=== PATIENT | male | born 1995 | race Caucasian/White ===

== ENCOUNTER 2016-03-19 21:10 | Emergency (ER) | payer BC ==
[~2016-03-19] VITALS: Ht 190.5 cm; Wt 63.9 kg
[2016-03-19 21:16] VITALS: TEMP 37; Ht 190.5 cm; Wt 63.9 kg
[2016-03-19] MEDS ORDERED: AMPH12.5 PO (21:38)
[2016-03-19] MEDS ORDERED: ALPR1TAB3 PO (21:38)
[2016-03-19] MEDS ORDERED: AZITHROMYCIN 250 MG TAB PO STA (22:11)
[2016-03-19] MEDS ORDERED: CEFTRIAXONE SOD 350MG/ML 1 GM VIAL IM STA (22:11)
[2016-03-19 22:48] LABS: URINE APPEARANCE CLEAR (CLEAR); URINE BILIRUBIN NEG (NEG); URINE COLOR YELLOW; URINE EPITHELIAL CELL AUTO >30 /lpf (0-5); URINE NITRITE NEG (NEG); URINE PH 7.5 (4.5-7.5); UROBILINOGEN NEG (NEG); ZZUR CULT IF INDIC CLEAN CATCH YES
[2016-03-19 22:59] LABS: MANUAL MICROSCOPIC REQUIRED? NO; REVIEW REQ? YES
--- NOTE | 2016-03-19 23:01 | EMERGENCY ROOM VISIT NOTE ---
History First contact with patient: 21:48 Chief Complaint: OTHER COMPLAINT Stated Complaint: SPITTING UP BLOOD,WANTS AN STD TEST History of Present Illness The patient is a 20 year old male who presents to the Emergency Department by private vehicle for evaluation of spitting up blood. The patient reports that he took Adderall today as he wished to "accomplish a lot". Earlier this evening at approximately 6 PM he reports smoking "tobacco" from a glass bong. He developed a coughing fit which resulted in vomiting. After vomiting, he blew his nose and noticed blood from the RIGHT naris. He noticed persistent blood that he was pain from his throat. He feels as though it is coming from the nose. He's had no persistent cough. He's had no dizziness or lightheadedness. He's had no recent illnesses. He rates his current discomfort as a 0/10. He reports no history of bleeding dyscrasias. He denies any headaches, neck pain, chest pain, or abdominal pain. There is been no black or tarry stools. In addition, the patient complains of a "tingling sensation" under the head of his penis. In addition, he reports urinary frequency and decreased urinary output. He has had protected sex recently. He denies any anal sex. Review of Systems A complete 10-point Review of Systems was discussed with the patient, with pertinent positives and negatives listed in the History of Present Illness. All remaining Review of Systems questions can be considered negative unless otherwise specified. Social History Smoking Status: Current Every Day Smoker Smokeless Tobacco Use: No Alcohol Use: occasionally Drug Use: none Marital Status: single Housing Status: lives with roommate Occupation Status: [employer] student Current/Historical Medications Scheduled Alprazolam (Xanax), 1 MG PO DIRECTED Amphetamine-Dextroamphetamine (Adderall), 22.5 MG PO BID Allergies Coded Allergies: No Known Allergies (Unverified , 03/19/16) Physical Exam Vital Signs Date Time Temp Pulse Resp B/P Pulse Ox O2 Delivery O2 Flow Rate FiO2 03/19/16 23:10 92 18 130/82 99 03/19/16 22:43 115 20 149/103 98 Room Air 03/19/16 21:16 37.0 109 18 142/93 97 Room Air Pain Rating (0-10): 0 Physical Exam VITAL SIGNS - Vital signs and nursing notes were reviewed. GENERAL - Well nourished, well developed 20-year-old male in no acute distress. Pt communicates well with provider and answers questions appropriately. HEAD - NC/AT with no obvious deformities. EYES - PERRL with EOMI bilaterally. Sclera without injection. Palpebral conjunctiva pink and moist. EARS - No deformities of external structures noted on gross examination bilaterally. No pain elicited with palpation of the tragus bilaterally. External auditory canals without discharge or otorrhea. Tympanic membranes pearly tovar without retraction or bulging. No fluid or purulent material visualized behind the TM. Handle of malleus, umbo, cone of light, pars tensa/ flaccid all easily visualized. NOSE - Midline and without cyanosis. No purulent drainage noted. Dried blood noted in the RIGHT naris. No active bleeding noted. MOUTH/OROPHARYNX - Without perioral cyanosis. Buccal mucosa pink and moist and without leukoplakia. Tongue midline with equal elevation of palate bilaterally. What appears to be a small clot in the RIGHT sided posterior oropharynx. No active bleeding noted. No tonsillar hypertrophy, erythema, or exudates noted. Good dentition noted. NECK - Neck with FROM. Supple to palpation. No lymphadenopathy noted. No nuchal rigidity. LUNGS - Chest wall symmetric without accessory muscle use, intercostals retractions, or central cyanosis. Normal vesicular breath sounds CTA B/L. No wheezes, rales, or rhonchi appreciated. CARDIAC - RRR with S1/S2. No murmur, rubs, or gallops appreciated. ABDOMEN - Abdominal contour flat without pulsations or visible masses. BS normoactive all four quadrants. No tenderness, palpable masses, hepatosplenomegaly, or ascites noted. GENITOURINARY -circumcised male without penile lesions or adhesions. No urethral discharge. No testicular tenderness to palpation appreciated. No palpable masses. Urethral swab was obtained. PSYCH - A&Ox3 and cooperates fully with examiner. Pt is very pleasant and interacts well with examiner. Medical Decision & Procedures Laboratory Results Test 03/19/16 22:05 03/19/16 22:16 Urine Color YELLOW Urine Appearance CLEAR (CLEAR) Urine pH 7.5 (4.5-7.5) Urine Specific [place] 1.000 (1.000-1.030) Urine Protein NEG (NEG) Urine Glucose (UA) NEG (NEG) Urine Ketones TRACE (NEG) Urine Occult Blood TRACE (NEG) Urine Nitrite NEG (NEG) Urine Bilirubin NEG (NEG) Urine Urobilinogen NEG (NEG) Urine Leukocyte Esterase MODERATE (NEG) Urine WBC (Auto) 10-30 /hpf (0-5) Urine RBC (Auto) 0-4 /hpf (0-4) Urine Hyaline Casts (Auto) 1-5 /lpf (0-5) Urine Epithelial Cells (Auto) >30 /lpf (0-5) Urine Bacteria (Auto) NEG (NEG) Urine Renal Epithelial Cells /lpf (0-5) Urine Opiates Screen NEG (NEG) Urine Methadone, Qualitative NEG (NEG) Urine Barbiturates NEG (NEG) Urine Phencyclidine (PCP) Level NEG (NEG) Ur Amphetamine/Methamphetamine POS (NEG) MDMA (Ecstasy) Screen NEG (NEG) Urine Benzodiazepines Screen NEG (NEG) Urine Cocaine Metabolite NEG (NEG) Urine Marijuana (THC) POS (NEG) Medications Administered Medications (Trade) Dose Ordered Sig/Allison Route Start Time Stop Time Status Last Admin Dose Admin Ceftriaxone Sodium (Rocephin Im) 250 mg NOW STAT IM 03/19/16 22:11 03/19/16 22:13 DC 03/19/16 22:11 250 MG Azithromycin (Zithromax Tab) 1,000 mg NOW STAT PO 03/19/16 22:11 03/19/16 22:13 DC 03/19/16 22:11 1,000 MG ED Course Patient was seen and evaluated by myself. I had a lengthy conversation with the patient regarding his symptoms. Urine dip was obtained. Urethral swab was obtained. GC and chlamydia cultures are pending. Urine dip was unremarkable for UTI. Patient was prophylactically treated with 250 mg Rocephin intramuscularly and 1 g of azithromycin orally. Patient was educated on following up with [facility] services from today's visit. He was educated on worrisome symptoms for return visit to the emergency department. Patient discharged home afebrile and in good condition. Medical Decision Given the patient's presentation and stated complaint, I did elect to perform the above-mentioned workup. The patient had an episode of vomiting which has appeared to have resulted in a nosebleed which has essentially resolved at this point. I do not feel that labs will aid in diagnosis at this point. No intervention is necessary. The patient is concern for STI's. Because of this, urethral swab was obtained as was urinalysis. The patient was prophylactically treated for GC and chlamydia. He was instructed to follow-up with [facility] for any further STI testing. He was educated on worrisome symptoms for return visit to the emergency department as well as refrain from illicit drug use. Patient discharged home in good condition with friends driving. In the evaluation and treatment of this patient, the following differential diagnoses were considered: Kidney Stone, STI, Bladder Cancer, Amongst Others. Impression Primary Impression: Arterial epistaxis Additional Impressions: Concern about STD in male without diagnosis Urinary symptom or sign Departure Information Dispostion Home / Self-Care Condition GOOD Referrals No Doctor, Assigned (PCP) Patient Instructions ED STD Male Treated, [facility] Additional Instructions You have been seen in the Emergency Department for your Nosebleed and STI Testing. Ultrasound imaging has suggested a diagnosis of Epididymitis. This is likely what has caused your discomfort. As part of standard protocol, a urethral swab has been obtained to rule out possible infectious causes of the epididymitis including Gonorrhea and Chlamydia. You will be contacted with the results of this test in approximately 72 hours. You have been treated prophylactically in the Emergency Department with 250 mg of Rocephin (ceftriaxone) intramuscularly and 1 g of azithromycin orally. This is part of standard protocol to reduce the risk of possible bacterial infection. As with any Emergency Department visit, you should follow-up with your Primary Care Provider from today's visit. Return to the Emergency Department if your symptoms worsen despite the treatment plan outlined above or if you develop the following symptoms: intractable pain, increased swelling, redness, or urethral discharge. Problem Qualifiers
[2016-03-19 23:10] VITALS: BP 130/82; PULSE 92; O2SAT 99
[2016-03-19 23:24] LABS: BENZODIAZEPINE, URINE NEG (NEG); COCAINE,URINE NEG (NEG); PHENCYCLIDINE, URINE NEG (NEG)
[2016-03-22 02:51] LABS: CHLAMYDIA TRACH RNA*** NOT DETECTED (NOT DETECTED); GC (NEIS GONORRHOEAE)RNA** NOT DETECTED (NOT DETECTED)
== END 2016-03-19 23:13 | disposition home or self-care (01) ==
LOC: C.EDB 21:11
DX: R04.0 Epistaxis (principal); Z11.3 Encounter for screening for infections with a predominantly sexual mode of transmission; R35.0 Frequency of micturition; R34 Anuria and oliguria; F17.200 Nicotine dependence, unspecified, uncomplicated